=== PATIENT | female | born 2000 | race Caucasian/White ===

== ENCOUNTER 2025-11-06 09:29 | Outpatient (AMB) | payer OTHER, SELFPAY ==
--- NOTE | 2025-11-06 09:32 | A.OFFPC_ITS ---
Vital Signs 11/06/25 09:41 Height 5 ft 3.66 in Weight 114 lb 8 oz BMI 19.9 BP 108/73 Blood Pressure Location Lt brachial Position Sitting Pulse 97 Pulse Source Pulse Oximeter Temp 98.4 F Temp Source Oral Pulse Oximetry (%) 99 Intake Visit Reasons: Med. Review (Venlasaxine XR) Anxiety Accompanied by: Self / Same As Patient Allergies No Known Allergies Allergy (Verified 11/06/25 09:33) Medication List - Last Reconciled 11/06/25 by Arnoldo Hollingsworth MD spironolactone 25 mg PO BID venlafaxine ER 37.5 mg PO DAILY venlafaxine ER 150 mg PO DAILY Tobacco use date assessed: 11/06/25 Dental Screening Dental Screen Date: 11/06/25 Did you have a dental visit in the last 12 months?: Yes HPI HPI Comments History of Present Illness Details History of Present Illness The patient is a 25 year old female presenting for establishing care and medication refills. Anxiety and Depression: The patient reports a history of anxiety and mild depression, diagnosed around 2020 during college. Her medications were previously managed by a psychiatrist in [place], and her Effexor dosage was increased last year. She currently sees a therapist but does not have a psychiatrist since moving in June. Acne: The patient reports acne, which is managed with spironolactone. History of Concussion: The patient has a history of six concussions. Medications: - Spironolactone 25 mg taken twice daily for acne. - Effexor (venlafaxine) 37.5 mg and 150 mg taken once daily for anxiety and depression. 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 - Tobacco Use: Denies smoking. - Alcohol Use: Denies drinking. - Substance Use: Reports occasional use of marijuana edibles but denies any history of using other illicit drugs. - Sexual History: Reports being sexually active with the same partner. - Contraception: Uses an IUD, which has been in place for seven years. Family History: - Mother: History of thyroid problems. - Grandparents: History of lung cancer. - Denies any other family history of can cer. Diagnostic Results: - The patient reports having a chlamydia and gonorrhea screening last year with her same partner. Past Medical History - History of six concussions. - Anxiety and mild depression diagnosed circa 2020. - Acne. Health Maintenance - Ordered comprehensive baseline labs: C BC, CMP, HbA1c, lipid panel, magnesium, hepatitis B, hepatitis C, HIV screen, syphilis screen, thyroid panel, urinalysis, vitamin B12, folate, and vitamin D. - Discussed need for Pap smear and advis ed patient to check her records and schedule if due. - Patient declined chlamydia and gonorrh ea screening at this time. - Recommended a follow-up visit in two [facility] to review lab results. [facility] Medical History (Updated 11/06/25 @ 13:45 by Arnoldo Hollingsworth MD) Anxiety and depression Concussion Acne Depression Anxiety Surgical History (Updated 11/06/25 @ 09:41 by Annetta Martinez CMA) [place] teeth extracted Family History (Updated 11/06/25 @ 09:40 by Annetta Martinez CMA) Mother Depression Family history of thyroid problem Father No problems noted. Social History (Updated 11/06/25 @ 09:34 by Annetta Martinez CMA) Housing: Apartment Alcohol intake: current Patient Tobacco Use Status: Never used Tobacco e-Cigarette/Vaping Use: Never Used service: No Current occupational status: employed Cognitive needs: No Hearing needs: No Vision needs: Yes (glasses for distance) Questionnaire PHQ-9 Over the last 2 weeks, how often have you been bothered by any of the following problems? 1. Little interest or pleasure in doing things: several days 2. Feeling down, depressed, or hopeless: not at all 3. Trouble falling or staying asleep, or sleeping too much: several days 4. Feeling tired or having little energy: several days 5. Poor appetite or overeating: not at all 6. Feeling bad about yourself - or that you are a failure or have let yourself or your family down: several days 7. Trouble concentrating on things, such as reading the newspaper or watching television: more than half the days 8. Moving or speaking so slowly that other people could have noticed. Or the opposite - being so fidgety or restless that you have been moving around a lot more than usual: not at all 9. Thoughts that you would be better off or of hurting yourself in some way: not at all Total score: 6 Depression Screening Interpretation: Negative Depression Screening Done: Yes Source: Developed by Drs. Elijah Massey, Randell Jimenez and colleagues, with an educational alem from [employer]. Thrive Questionnaire Date Thrive assessed: 11/06/25 I am a: Patient What is your living situation today?: I have a steady place to live Within the past 12 months, did the food you bought not last and you didn't have the money to get more?: Never true Within the past 12 months, did you worry whether your food would run out before you got money to buy more?: Never true Do you have trouble paying for medicines?: No Do you have trouble getting transportation to medical appointments?: No Do you have trouble paying your heating and electricity bill?: No Do you have trouble taking care of your child, family member or friend?: No Are you currently unemployed and looking for a job?: No Are you interested in more education?: No Please select the resources that you would like help with: None Currently or been in a relationship where the following occur: No concerns reported THRIVE Score: 0 AUDIT C Alcohol Use Questionnaire (AUDIT-C) 1. How often do you have a drink containing alcohol?: Monthly or less 2. How many drinks containing alcohol do you have on a typical day when you are drinking?: 3 or 4 3. How often do you have six or more drinks on one occasion?: Less than monthly Total Score: 3 TOBI-7 AMB Questionnaire TOBI-7 Date TOBI - 7 assessed: 11/06/25 Feeling nervous, anxious, or on edge: 2 = More than half the days Not being able to stop or control worryin = More than half the days Worrying too much about different things: 2 = More than half the days Trouble relaxin = Several days Being so restless that it is hard to sit still: 0 = Not at all Becoming easily annoyed or irritable: 1 = Several days Feeling afraid as if something awful might happen: 0 = Not at all Total TOBI-7 score (0-4 normal; 5-9 mild; 10-14 moderate; 15-21 severe): 8 Source: Developed by Drs. Elijah Massey, Randell Jimenez and colleagues, with an educational alem from [employer]. Review of Systems Narrative Review of Systems - Constitutional: Reports feeling unwell the day prior after receiving a COVID- 19 booster. - Psychiatric: Reports anxiety and mild depression. - Integumentary: Reports acne. - Endocrine: Denies family history of cancer; notes maternal history of thyroid problems. - Genitourinary: Reports irregular menstruation due to an IUD. - Gastrointestinal: Reports normal bowel movements. - Neurological: Reports a history of six concussions. - Sleep: Reports sleep is fine. 10-point ROS reviewed and negative except as noted in HPI Physical exam (Primary Care) Vital Signs: Last Vital Signs Temp 98.4 F 11/06/25 09:41 Pulse 97 11/06/25 09:41 BP 108/73 11/06/25 09:41 Pulse Ox 99 11/06/25 09:41 BMI result Body Mass Index 19.9 Tobacco/Smoking Status: Tobacco use Status Tobacco use date assessed 11/06/25 11/06/25 09:34 Patient Tobacco Use Status Never used Tobacco 11/06/25 09:34 e-Cigarette/Vaping Use Never Used 11/06/25 09:34 PHQ-9: PHQ-9 Score PHQ-9: Total score 6 11/06/25 10:02 Depression Screening Interpretation: Negative Thrive Assessment: Date of Thrive Assessment Date Thrive assessed 11/06/25 11/06/25 09:34 Currently or been in a relationship where the following occur: No concerns reported Narrative Physical Exam General: Well-appearing, in no acute distress. Vital signs: Within normal limits. HEENT: Normocephalic, atraumatic. PERRLA, EOMI. Conjunctiva clear, sclera an icteric. Oropharynx clear, mucous membranes moist. TMs intact bilaterally. Neck: Supple, no lymphadenopathy, no thyromegaly, no JVD or carotid bruits. Cardiovascular: RRR, normal S1/S2, no murmurs, rubs, or gallops. Peripheral pulses 2+ and symmetric. No edema. Respiratory: Lungs clear to auscultation bilaterally, no wheezes, rales, or rhonchi. Normal effort. Abdomen: Soft, non-tender, non-distended. Normoactive bowel sounds. No hepatosplenomegaly, no masses. MSK: Full range of motion, no joint swelling or deformity. Normal gait. Skin: Warm, dry, intact. No rashes, lesions, or pallor. Neuro: Alert and oriented x3. Cranial nerves II-XII intact. Strength 5/5 throughout. Sensation intact. Reflexes 2+ symmetric. Normal coordination and gait. Psych: Appropriate mood and affect. Normal judgment and insight. History of anxiety and mild depression. Office Procedures Flu Questionnaire Does the patient have a severe egg allergy?: No Does the patient have severe life threatening allergies?: No Does the patient have a fever or illness today?: No Has the patient ever had Guillain-Dawson Syndrome?: No Has the patient ever had any past reaction to a flu shot?: No Immunizations Fluarix [id number] (PF) 45 mcg (15 mcg x 3)/0.5 mL IM syringe Performing Provider: Arnoldo Hollingsworth MD Performing Location: [facility] Documented (not given) by: Annetta Martinez CMA on 11/06/25 09:45 Reason Not Given: Received Previously Coding Level of Care Code New Pt Level 4 (02787) Add On Problem Visit Only Diagnoses Anxiety and depression F41.9; F32.A Acne L70.9 Assessment & Plan Assessment & Plan (1) Anxiety and depression: Code(s): F41.9 - Anxiety disorder, unspecified; F32.A - Depression, unspecified Category: Medical (2) Acne: Code(s): L70.9 - Acne, unspecified Category: Medical Plan Consent The patient provided verbal consent for a comprehensive laboratory workup, including a complete blood count, comprehensive metabolic panel, hemoglobin A1c, lipid panel, magnesium, hepatitis B and C screening, HIV screening, syphilis screening, thyroid function tests, urinalysis, vitamin B12, folate, and vitamin D levels. She declined screening for chlamydia and gonorrhea, stating she is in a monogamous relationship and had a recent negative test. Patient was informed and verbally consented to the use of an ambient scribe for clinic note documentation during this visit. Plan 1. Anxiety And Depression - Sent a 3-month prescription for Effexor (venlafaxine) 150 mg and 37.5 mg. - A referral to psychiatry has been placed for continued management of her medications. - Future refills will require the patient to be established with a psychiatrist. 2. Acne - Sent a 3-month prescription for spironolactone 25 mg BID. Discussion Notes I met with the patient for the first time as she is establishing care after a r ecent move. Her primary need was for refills of her medications, Effexor and spironolactone. I explained that I would provide a 3-month supply of her medications to ensure continuity of care, but since I have no prior records, ongoing management of her psychiatric medication needs to be handled by a psychiatrist. I placed a referral to our psychiatry department for her and discussed that she has some free visits available through her employer as well. We discussed ordering a comprehensive set of labs to establish a baseline of her overall health, and she verbally consented. I also addressed health maintenance, advising her to verify if she is due for a Pap smear. I offered to perform the exam or refer her to an DIVERSIFIED CROPS FARMWORKER based on her preference. A follow-up visit in two weeks was scheduled to review lab results. Patient Instructions - Your prescriptions for Effexor and Spironolactone have been sent to your pharmacy for a 3-month supply. - Please get the bloodwork done as discussed. - A referral has been made for you to see a psychiatrist for ongoing management of your anxiety and depression medication. Please schedule an appointment with them. - Please check if you are due for a Pap smear and let us know if you need to schedule one. - We have scheduled a follow-up appointment in two weeks to go over your lab results. - You recently had a COVID booster, which may have caused you to feel unwell, but it will not affect your lab results. Medical Decision Making The patient is a 25-year-old female presenting to establish primary care and obtain refills for her chronic medications for acne, anxiety, and depression. She has been on Effexor and spironolactone, which were [place]. Given that she is new to the area, does not have established psychiatric care, and I lack her previous medical records, providing a 3-month bridge supply of her medications is appropriate to ensure continuity of care and prevent withdrawal or exacerbation of her conditions. Long-term management of her psychiatric medications should be handled by a specialist, hence the referral to psychiatry. A comprehensive panel of labs was ordered to establish a baseline health status, screen for common conditions, and investigate any potential underlying causes for her symptoms, which is standard for a new patient visit. Health maintenance needs, specifically cervical cancer screening, were addressed based on her age. Follow-up in two weeks is warranted to review the results of the extensive lab work and make further clinical decisions. Total Time Statement 30 min Total time spent caring for the patient today includes pre-visit chart review, documentation, review of laboratory and diagnostic imaging results, medication reconciliation, medically necessary evaluation, counseling on diagnoses, care coordination, ordering appropriate tests and medications, review of tests performed by other providers, reporting test results to the patient, and communication with other healthcare providers. Orders: Orders Influenza [id number] Immunization Today Z23 - Encounter for immunization Comprehensive Met. Panel Today Z13.9 - Encounter for screening, unspecified Hepatitis C Antibody Today Z13.9 - Encounter for screening, unspecified HIV Ab/Ag Today Z13.9 - Encounter for screening, unspecified UA CC w/rflx Micro + Cult Today Z13.9 - Encounter for screening, unspecified Lipid Panel Today Z13.9 - Encounter for screening, unspecified Hepatitis B Surface Antibody Today Z13.9 - Encounter for screening, unspecified Vitamin D 25-OH (D2 and D3) Today Z13.9 - Encounter for screening, unspecified Complete Blood Count Auto Diff Today Z13.9 - Encounter for screening, unspecified Hepatitis B Surface Antigen Today Z13.9 - Encounter for screening, unspecified Syphilis Screen Today Z13.9 - Encounter for screening, unspecified TSH reflex Free T4 Today Z13.9 - Encounter for screening, unspecified Vitamin B12 and Folate Today Z13.9 - Encounter for screening, unspecified Hemoglobin A1c Today Z13.9 - Encounter for screening, unspecified Magnesium Today Z13.9 - Encounter for screening, unspecified Referrals Psychiatry Referral F32.A - Depression, unspecified, F41.9 - Anxiety disorder, unspecified Psychiatry Outpatient Consultation Service F32.A - Depression, unspecified, F41.9 - Anxiety disorder, unspecified Medications: New venlafaxine ER 150 mg PO DAILY 90 caps 0RF spironolactone 25 mg PO BID 180 tabs 0RF venlafaxine ER 37.5 mg PO DAILY 90 caps 0RF
[2025-11-06 09:41] VITALS: BP 108/73; PULSE 97; TEMP 36.9; O2SAT 99; BMI 19.9
--- OUTSIDE RECORDS SUMMARY | 2025-11-06 10:12 | XMS_ITS | Clinical Summary ---
Author Organization [facility] Address [address] [place] [address] Care Team Providers Care Data Processing Systems Project Planner Name Role Phone Isamar Pugh MD Primary Care Provider [phone] Social History Tobacco Use Types Packs/Day Years Used Date Smoking Tobacco: Never Assessed Interpersonal Safety Answer Date Record ed Physically Hurt Never 06/21/2020 Verbally Threaten Not on file 06/21/2020 Comments Unknown Sex and Gender Information Value Date Recorded Sex Assigned at Not on file Legal Sex Female 11:58 EDT Gender Identity Female 10/12/2019 18:27 EST Sexual Orientation Not on file Plan of Treatment Health Maintenance Due Date Last Done Comments Hepatitis C Screen 2000 Hepatitis B Vaccine (1 of 3 - 19+ 3-dose series) 05/16 COVID-19 Vaccine (2024- season) 2025 Insurance [employer] Care Teams Data Processing Systems Project Planner Relationship Specialty Start Date End Date Isamar Pugh MD [address] [place] [address] [place] [phone] PCP - General 12/09/18
--- OUTSIDE RECORDS SUMMARY | 2025-11-06 10:12 | XMS_ITS | Encounter Summary ---
Author Organization [facility] Address [address] [place] [address] Care Team Providers Care Coal Sample Tester Name Role Phone Isamar Pugh MD Primary Care Provider [phone] Encounter Details Date Type Department Care Team (Late st Contact Info) Description 12/22/2019 Lab Requisition [facility] Pathology & [place] [address] Renita Mathew, [address] [phone] Encounter for screening for infections with a predominantly sexual mode of transmission Social History Tobacco Use Types Packs/Day Years Used Date Smoking Tobacco: Never Assessed Comments Unknown Sex and Gender Information Value Date Recorded Sex Assigned at Not on file Legal Sex Female 11:58 EDT Gender Identity Female 10/12/2019 18:27 EST Sexual Orientation Not on file documented as of this encounter Plan of Treatment Not on file documented as of this encounter Procedures Procedure Name Priority Date/Time Associated Diagnosis Comments CHLAMYDIA/N. GONORRHOEAE AMPLIFIED NUCLEIC ACID Routine 12/22/2019 9:09 EST Encounter for screening for infections with a predominantly sexual mode of transmission documented in this encounter Results * CHLAMYDIA/N. GONORRHOEAE AMPLIFIED RNA (12/22/2019 9:09 EST) Neisseria gonorrhoeae Result Negative Negative 12/23/2019 14:19 EST [facility] Chlamydia trachomatis Result Negative Negative 12/23/2019 14:19 EST [facility] Swab ENTIRE VAGINA / Unknown 12/22/2019 9:09 EST 12/22/2019 14:40 EST us Renita Mathew DNP MICROBIOLOGY - GENERAL ORDERAB LES Final Result [facility] [address] [place] [address] documented in this encounter Visit Diagnoses Diagnosis Encounter for screening for infections with a predominantly sexual mode of transmission documented in this encounter Care Teams Coal Sample Tester Relationship Specialty Start Date End Date Isamar Pugh MD [address] [place] [phone] PCP - General 12/09/18 documented as of this encounter
--- OUTSIDE RECORDS SUMMARY | 2025-11-06 10:12 | XMS_ITS | Encounter Summary ---
Author Organization [facility] Address [address] [place] [address] Care Team Providers Care Fire Boat Engineer Name Role Phone Isamar Pguh MD Primary Care Provider [phone] Encounter Details Date Type Department Care Team (Late st Contact Info) Description 03/09/2022 Lab Requisition [facility] Pathology & Laboratory Medicine - [facility] [address] [place] [address] Yahaira Medina, MOTOR EQUIPMENT LIEUTENANT [address] [facility] [address] [place], [place] [id number] Encounter for screening for infections with a [...] Comments CHLAMYDIA/N. GONORRHOEAE AMPLIFIED NUCLEIC ACID Routine 03/09/2022 15:22 EDT Encounter for screening for infections with a predominantly sexual mode of transmission documented in this encounter Results * CHLAMYDIA/N. GONORRHOEAE AMPLIFIED RNA (03/09/2022 15:22 EDT) Neisseria gonorrhoeae Result Negative Negative 03/10/2022 14:11 EDT [facility] Chlamydia trachomatis Result Negative Negative 03/10/2022 14:11 EDT [facility] Swab ENTIRE VAGINA / Unknown 03/09/2022 15:22 EDT 03/09/2022 17:39 EDT us Yahaira Medina NP MICROBIOLOGY - GENERAL SHIRLEY JACOME Final Result Performing Organization Address City/State/[facility] Co de Phone Number [facility] [address] [place] [address] documented in this encounter Visit Diagnoses Diagnosis Encounter for screening for infections with a predominantly sexual mode of transmission documented in this encounter Care Teams Fire Boat Engineer Relationship Specialty Start Date End Date Isamar Pugh MD [address] [place] [phone] PCP - General 12/09/18 documented as of this encounter
--- OUTSIDE RECORDS SUMMARY | 2025-11-06 10:12 | XMS_ITS | Encounter Summary ---
Author Organization [facility] Address [address] [place] [address] Care Team Providers Care Blade Filer Name Role Phone Isamar Pugh MD Primary Care Provider [phone] Encounter Details Date Type Department Care Team (Late st Contact Info) Description 09/02/2021 Lab Requisition [facility] Pathology & Laboratory Medicine - [facility] [address] [place] [address] Yahaira Medina, ENGINE INSTALLER [address] [facility] [address] [place], [place] [id number] Encounter for screening for infections with a [...] Comments CHLAMYDIA/N. GONORRHOEAE AMPLIFIED NUCLEIC ACID Routine 09/02/2021 11:34 EDT Encounter for screening for infections with a predominantly sexual mode of transmission documented in this encounter Results * CHLAMYDIA/N. GONORRHOEAE AMPLIFIED RNA (09/02/2021 11:34 EDT) Neisseria gonorrhoeae Result Negative Negative 09/05/2021 15:18 EDT [facility] Chlamydia trachomatis Result Negative Negative 09/05/2021 15:18 EDT [facility] Swab ENTIRE VAGINA / Unknown 09/02/2021 11:34 EDT 09/02/2021 22:36 EDT us Yahaira Medina ENGINE INSTALLER MICROBIOLOGY - GENERAL SHIRLEY JACOME Final Result Performing Organization Address City/State/[facility] Co de Phone Number [facility] [address] [place] [address] documented in this encounter Visit Diagnoses Diagnosis Encounter for screening for infections with a predominantly sexual mode of transmission documented in this encounter Care Teams Blade Filer Relationship Specialty Start Date End Date Isamar Pugh MD [address] [place] [phone] PCP - General 12/09/18 documented as of this encounter
--- OUTSIDE RECORDS SUMMARY | 2025-11-06 10:12 | XMS_ITS | Encounter Summary ---
Author Organization [facility] Address [address] [place] [address] Care Team Providers Care Credit Union Examiner Name Role Phone Isamar Pugh MD Primary Care Provider [phone] Encounter Details Date Type Department Care Team (Latest Contact Info) Description 10/01/2019 Lab Requisition [facility] Pathology & Laboratory Medicine - [address] [address] Ameena Heredia, [address] [phone] Encounter for screening for infections with a [...] Diagnosis Comments CHLAMYDIA/N. GONORRHOEAE AMPLIFIED NUCLEIC ACID Today 10/01/2019 13:37 EST documented in this encounter Results * CHLAMYDIA/N. GONORRHOEAE AMPLIFIED RNA (10/01/2019 13:37 EST) Neisseria gonorrhoeae Result Negative Negative 10/02/2019 14:11 EST [facility] Chlamydia trachomatis Result Negative Negative 10/02/2019 14:11 EST [facility] Swab ENTIRE VAGINA / Unknown 10/01/2019 13:37 EST 10/02/2019 8:28 EST us Ameena Heredia HEALTH AND WELLNESS COORDINATOR-BC MICROBIOLOGY - GENER AL ORDERABLES Final Result [facility] [address] [place] [address] documented in this encounter Visit Diagnoses Diagnosis Encounter for screening for infections with a predominantly sexual mode of transmission documented in this encounter Care Teams Credit Union Examiner Relationship Specialty Start Date End Date Isamar Pugh MD [address] [place] [phone] PCP - General 12/09/18 documented as of this encounter
--- OUTSIDE RECORDS SUMMARY | 2025-11-06 10:12 | XMS_ITS | Encounter Summary ---
Author Organization [facility] Address [address] [place] [address] Care Team Providers Care Ticket Taker Name Role Phone Isamar Pugh MD Primary Care Provider [phone] Encounter Details Date Type Department Care Team (Late st Contact Info) Description 12/12/2021 Lab Requisition [facility]ology & [place] [address] Tori Ash MD [address] [place] [address], [address] [place] [phone] Encounter for gynecological examination (general) (routine) without abnormal findings; Encounter for screening for other infectious and parasitic diseases; Encounter for screening for infections with a [...] Procedure Name Priority Date/Time Associated Diagnosis Comments PAP TEST Today 12/08/2021 13:42 EST Encounter for gynecological examination (general) (routine) without abnormal findings [ICD-10-CM] documented in this encounter Results * PAP TEST (12/08/2021 13:42 EST) Specimens A. Cervix and/or Endocervix , ThinPrep Imaging System with Manual Evaluation 12/21/2021 17:50 [facility] Specimen Adequacy Satisfactory for Evaluation - transformation zone component present 12/21/2021 17:50 [facility] General Categorization Negative for intraepithelial lesion or malignancy 12/21/2021 17:50 [facility] Attestation . 12/21/2021 17:50 [facility] at 1750 EST Clinical History Clinical History, Signs, Symptoms, Chief Complaint, Pertaining to This Order: See below Last Menstral Period: 12/05/21 Hormone/Contracep tive Use?: Yes 12/21/2021 17:50 [facility] Performing Lab [facility] 12/21/2021 17:50 [facility] Scanned Images 12/21/2021 17:50 [facility] Papanicolaou smear specimen (specimen) CERVIX UTERI STRUCTURE / Unknown 12/08/2021 13:42 EST 12/13/2021 13:36 EST us Tori Ash MD PATHOLOGY ORDERABLES Final Result [facility] [address] [place] [address] documented in this encounter Visit Diagnoses Diagnosis Encounter for gynecological examination (general) (routine) without abnormal findings Encounter for screening for other infectious and parasitic diseases Encounter for screening for infections with a predominantly sexual mode of transmission documented in this encounter Care Teams Ticket Taker Relationship Specialty Start Date End Date Isamar Pugh MD [address] [place] [phone] PCP - General 12/09/18 documented as of this encounter
--- OUTSIDE RECORDS SUMMARY | 2025-11-06 10:12 | XMS_ITS | Clinical Summary ---
Author Organization [facility] Address [facility] [place] [address] Care Team Providers Care Bush Hog Operator Name Role Phone Isamar Pugh MD Primary Care Provider [phone] Allergies No known active allergies Medications ibuprofen (ADVIL;MOTRIN) 600 mg Tablet Take 1 tablet by mouth every 6 hours as needed for Pain. 20 tablet 04/29/2019 Active Active Problems No known active problems Immunizations Immunization Administration Dates Next Due Covid-19 Monovalent (Moderna Spikevax) 12yrs+ (3080-2430) 11/04/2021,02/15/2021 DTaP 08/17/2005, 4,2000,09/17,2000 HIB PRP-T Conjugate (ActHIB, Hiberix, OmniHib) 2000,2000,2000 HPV 9-Valent (Gardasil 9) 11/23/2017 HPV, Quadrivalent (Gardasil) 12/06/2016,01/24/20 16 Hepatitis A Pediatric/Adoles cent (Havrix, Vaqta) 04/24/2019,11/23/2017 Hepatitis B Pediatric/Adoles cant (Engerix-B, Recombivax) 11/20/2003,2000,2000 Hepatitis B, Unspecified Formulation 11/20/2003, 2000,2000 Influenza (FluMist) Trivalen t Intranasal, LIVE 09/09/2015,09/01/2014,08/11/2013,10/17,10/02/2011,10/06/2010,11/04/2003 Influenza Quadrivalent with Preservative 11/23/2017 Influenza Quadrivalent, Pres ervative Free 12/06/2016 Influenza Vaccine, Whole 11/04/2003 MMR Vaccine LIVE 08/17/2005,08/08/2001 Meningococcal ACWY Polysacch aride Conjugate (Menactra) 11/23/2017,10/02/2011 Meningococcal B Omv (Bexsero) 06/11/2020, 019 Pneumococcal 7-Valent Conjug ate (Prevnar 7) 2000,2000 Polio Inactivated (IPOL) 08/17/2005,11/19,2000,07/15 Tdap (Adacel, Boostrix) 07/11/2022,10/02/2011 Varicella LIVE (Varivax) 10/02/2011,08/08/2001 Social History Tobacco Use Types Packs/Day Years Used Date Smoking Tobacco: Never Smokeless Tobacco: Never Comments Unknown Sex and Gender Information Value Date Recorded Sex Assigned at Not on file Legal Sex Female 7:06 AM EST Gender Identity Not on file Sexual Orientation Not on file Last Filed Vital Signs Vital Sign Reading Time Taken Comments Blood Pressure 110/68 07/11/2022 11:10 AM EDT Sourced from [employer] Data [employer]version Pulse 66 04/29/2019 11:30 AM EDT Temperature 36.5 C (97.7 F) 04/29/2019 11:04 AM EDT Respiratory Rate 16 04/29/2019 11:3 0 AM EDT Oxygen Saturation 100% 04/29/2019 11: 30 AM EDT Inhaled Oxygen Concentration - - Weight 50.4 kg (111 lb 1.8 oz) 07/11/2022 11:10 AM EDT Sourced from [employer] Height 159 cm (5' 2.6 ) 07/11/2022 11:1 0 AM EDT Sourced from [employer] Data [employer] Body Mass Index 19.94 07/11/2022 11:10 AM EDT Plan of Treatment Health Maintenance Due Date Last Done Comments Chlamydia Screening 2015 HIV screen 2018 Hepatitis C Screening 2018 PAP Smear 2021 Covid-19 Vaccine (3 - 2024-2 6 season) 2025 11/04/2021, 02/15/2021 Influenza (Flu) vaccine (1 o f 1 - Influenza standard series) 07/20/2025 11/23/2017, 12/06/2016, 09/09/2015, Additional history exists Tetanus/Diphtheria/Pertussis Vaccines (8 - Td or Tdap) 07/11/2032 07/11/2022, 10/02/2011, 08/17/2005, Additional history exists Hepatitis B vaccine (0-59 yr s) and Risk Completed 11/20/2003, 11/20/2003, 2000, Additional history exists HPV vaccine Completed 11/23/2017, 11/19, 01/24/2016 Care Teams Bush Hog Operator Relationship Specialty Start Date End Date Isamar Pugh MD [address] [place] [address] [place] [address] PCP - General Pediatrics 04/22/19
--- OUTSIDE RECORDS SUMMARY | 2025-11-06 10:12 | XMS_ITS | Encounter Summary ---
Author Organization [facility] Address [address] [place] [address] Care Team Providers Care Dispensing And Measuring Optician Name Role Phone Isamar Pugh MD Primary Care Provider [phone] Encounter Details Date Type Department Care Team (Late st Contact Info) Description 12/12/2021 Lab Requisition [facility]ology & Laboratory Medicine - [address] [address] Tori Ash MD [address] [place] [address], [address] [place] [phone] Encounter for gynecological examination (general) (routine) without [...] Associated Diagnosis Comments CHLAMYDIA/N. GONORRHOEAE AMPLIFIED NUCLEIC ACID, THINPREP Routine 12/08/2021 13:42 EST Encounter for gynecological examination (general) (routine) without abnormal findings Encounter for screening for other infectious and parasitic diseases Encounter for screening for infections with a predominantly sexual mode of transmission documented in this encounter Results * CHLAMYDIA/N. GONORRHOEAE AMPLIFIED RNA, THINPREP (12/08/2021 13:42 EST) Neisseria gonorrhoeae Result Negative Negative 12/13/2021 15:07 EST [facility] Chlamydia trachomatis Result Negative Negative 12/13/2021 15:07 EST [facility] Papanicolaou smear specimen (specimen) CERVIX UTERI STRUCTURE / Unknown 12/08/2021 13:42 EST 12/13/2021 8:07 EST us Tori Ash MD MICROBIOLOGY - GENERAL ORD ERABLES Final Result [facility] [address] [place] [address] documented in this encounter Visit Diagnoses Diagnosis Encounter for gynecological examination (general) (routine) without abnormal findings Encounter for screening for other infectious and parasitic diseases Encounter for screening for infections with a predominantly sexual mode of transmission documented in this encounter Care Teams Dispensing And Measuring Optician Relationship Specialty Start Date End Date Isamar Pugh MD [address] [place] [phone] PCP - General 12/09/18 documented as of this encounter
== END 2025-11-06 10:03 | disposition home or self-care (01) ==
LOC: HO.HMCFMS 09:29
PROVIDERS: Visit Provider Student in an Organized Health Care Education/Training Program
DX: F41.9 Anxiety disorder, unspecified (principal); F32.A Depression, unspecified; L70.9 Acne, unspecified; Z23 Encounter for immunization

== ENCOUNTER 2025-11-06 09:29 | Outpatient (REF) | payer OTHER, SELFPAY ==
[2025-11-06 15:13] LABS: Appearance Urine Cloudy; Glucose Urine UA Negative (Negative); PH 7.5 (5.0-9.0); Specific Gravity - Urine 1.025 (1.005-1.025); UMIC TRIGGER UACC YES
[2025-11-06 15:31] LABS: Hematocrit 41.2 % (37.0-47.0); Hemoglobin 13.5 g/dl (12.0-16.0); Imm Gran Abs Auto 0.01 X10*3/uL (0.00-0.03); Imm Gran Pct Auto 0.2 % (0.0-0.4); Lymphocytes Absolute Auto 1.4 X10*3/uL (1.2-4.9); MANUAL DIFF FLAG SCAN; Mean Corpuscular HGB Conc 32.8 g/dl (31.0-35.0); Mean Corpuscular Hemoglobin 31.3 pg (27.0-33.0); Mean Corpuscular Volume 95.4 fL (80.0-98.0); NRBC Abs Auto 0.000 X10*3/uL (0.0-0.012); NRBC Pct Auto 0.0 /100WBC (0.0-0.2); Platelet Count 238 X10*3/uL (160-400); Red Blood Count 4.32 X10*6/uL (4.20-5.50); SCAN SMEAR FLAG 1; White Blood Count 4.3 X10*3/uL (4.8-10.8)
[2025-11-06 15:38] LABS: UACC Culture Trigger YES
[2025-11-06 16:15] LABS: Alanine Aminotransferase 38 U/L (0-31); Albumin Level 5.0 g/dL (3.5-5.0); Alkaline Phosphatase 52 U/L (39-117); Anion Gap 9 (12-20); Aspartate Amino Transferase 23 U/L (5-31); Blood Urea Nitrogen 9 mg/dL (9-16); Calcium 9.5 mg/dL (8.4-10.2); Carbon Dioxide 30 mmol/L (22-29); Chloride 105 mmol/L (96-108); Cholesterol 140 mg/dL (<200); Estimated Glomerular Filt Rate > 60; HDL Cholesterol 53 mg/dL (>40); Magnesium 2.2 mg/dL (1.6-2.6); Potassium 4.0 mmol/L (3.3-5.1); Sodium 140 mmol/L (135-145); Total Protein 7.5 g/dL (6.5-8.0); Triglycerides 88 mg/dL (<150)
[2025-11-06 16:22] LABS: Folate 14.3 ng/mL (> or = 4.0); Vitamin B12 551 pg/mL (200-900)
[2025-11-09 03:54] LABS: Syphilis Screen Nonreactive (Nonreactive)
[2025-11-09 04:24] LABS: HBsAGNum1 0.28 S/CO (0.00-0.99); HIV Num 1 0.08 S/CO (0.00-0.99); Hepatitis B Surface Antigen Negative (Negative); ~HepC Num1 0.11 S/CO (0.00-0.79); ~Hepatitis B Surface Antibody REACTIVE (Nonreactive); ~Hepatitis C Antibody Nonreactive (Nonreactive)
[2025-11-11 14:33] LABS: Vitamin D 25-OH, D2 <4 ng/mL; Vitamin D 25-OH, D3 41 ng/mL; Vitamin D 25-OH, Total 41 ng/mL (30-100)
== END 2025-11-06 09:30 | disposition home or self-care (01) ==
LOC: HO.HKASLDS 09:29
PROVIDERS: PCP Student in an Organized Health Care Education/Training Program; Visit Provider Student in an Organized Health Care Education/Training Program
DX: F41.9 Anxiety disorder, unspecified (principal); F32.A Depression, unspecified; L70.9 Acne, unspecified; Z28.89 Immunization not carried out for other reason; Z79.899 Other long term (current) drug therapy
CPT/HCPCS: 36415; 80053; 80061; 81001; 82306; 82607; 82746; 83036; 83735; 84443; 85025; 86706; 86780; 86803; 87086; 87340; 87389; 90471; 96127